=== PATIENT | female | born 1995 | race Caucasian/White ===

== ENCOUNTER 2023-08-14 11:17 | Inpatient (IN) | payer MEDICAID, SELFPAY ==
[2023-08-14] VITALS (8 sets, daily range): BP systolic 118–154; BP diastolic 71–93; PULSE 67–98; RESP 14–16; TEMP 36.1–36.6; O2SAT 98–100; BMI 33.8
--- NOTE | 2023-08-14 12:05 | EX.ED.DYSGE1 ---
HPI <SKYE Villafuerte - Last Filed: 08/14/23 13:26> History of Present Illness Chief Complaint: Substance Abuse Narrative Narrative: Patient is a 27-year-old female with history of bipolar, psychosis, PTSD, anxiety, depression who is currently on disability who presents to the emergency department for wanting detox. Patient states that she drinks alcohol whenever she can, she says she does drink significant amounts between 5-6 drinks a day. Patient also uses fentanyl and heroin, she snorts this 3-6 times a day. Patient also takes Xanax 2 mg 4 times a day this is prescribed for her. Patient states that she wants to get sober. Her last time trying detox was 1 month ago, she states was a 5-day stent however right when she got out she started using. Patient states he is try to get in the 180. She is here for evaluation. PFS <SKYE Villafuerte - Last Filed: 08/14/23 13:26> PFS Medical History Drug abuse ETOH abuse Home Medications alprazolam 2 mg tablet 2 mg PO Q6H PRN PRN anxiety 08/14/23 [History Last Taken 08/13/23] clonazepam 0.5 mg tablet 0.5 mg PO PRN PRN anxiety 08/14/23 [History Last Taken 08/13/23] clonidine HCl 0.1 mg tablet 0.1 mg PO DAILY PRN ANXIETY 08/14/23 [History Last Taken 08/13/23] ergocalciferol (vitamin D2) 1,250 mcg (50,000 unit) capsule 1,250 mcg PO MO 08/14/23 [History Last Taken 08/11/23] escitalopram oxalate 20 mg tablet 20 mg PO DAILY 08/14/23 [History Last Taken 08/12/23] gabapentin 800 mg tablet 800 mg PO 4X/DAY 08/14/23 [History Last Taken 08/12/23] hydroxyzine HCl 50 mg tablet 50 mg PO 4X/DAY 08/14/23 [History Last Taken 08/12/23] lamotrigine 25 mg tablet 25 mg PO BID 08/14/23 [History Last Taken 08/12/23] naproxen 500 mg tablet 500 mg PO BID PRN pain 08/14/23 [History Last Taken Unknown] olanzapine 10 mg tablet 15 mg PO DAILY 08/14/23 [History Last Taken 08/12/23] prazosin 2 mg capsule 2 mg PO QHS 08/14/23 [History Last Taken Unknown] quetiapine 400 mg tablet 400 mg PO QHS 08/14/23 [History Last Taken Unknown] Allergy/AdvReac Type Severity Reaction Status Date / Time fluoxetine [From Prozac] Allergy Other Verified 08/14/23 11:22 Family History (Updated 08/14/23 @ 13:[address] Miguel Medina DO) Other CAD (coronary artery disease) Social History Smoking Status: Current every day smoker tobacco type: cigarettes ROS <SKYE Villafuerte - Last Filed: 08/14/23 13:26> ROS ED ROS Narrative Constitutional: Negative for fever, chills, weight loss, weakness Eyes: Negative for vision loss, vision change, double vision ENT: Negative for any sore throat, ear pain, congestion Cardiovascular: Negative for any chest pain, tightness, palpitations Respiratory: Negative for any cough, sputum production, hemoptysis, dyspnea, dyspnea on exertion, orthopnea Gastrointestinal: Negative for any abdominal pain, nausea, vomiting, diarrhea, constipation, blood in stool, blood in vomit : Negative for any urinary frequency, dysuria, retention, blood in urine Muscle skeletal: Negative for any neck pain, back pain Neurological: Negative for any headache, syncope, dizziness Skin: Negative for any rashes, itching, abrasions, lacerations Psychiatric: Negative for any depression,suicidal ideation, homicidal ideation. Positive for anxiety, stress Hematologic: Negative for any excessive bruising, easy bleeding EXAM <SKYE Villafuerte - Last Filed: 08/14/23 13:26> Physical Exam Narrative Exam Narrative: Vital signs reviewed. HEET: Head normocephalic atraumatic, TMs clear bilaterally. Posterior pharynx is clear, moist mucous membranes. Nares clear bilaterally. Neck: Supple with no lymphadenopathy or tenderness. No signs of meningismus. Cardiac: Regular rate and rhythm no murmurs gallops or rubs, equal peripheral pulses bilaterally. Respiratory: Lungs clear to auscultation bilaterally. No chest tenderness. Abdomen: Soft, nontender, nondistended. No abdominal bruit or pulsatile masses. No hepatosplenomegaly Extremities: No peripheral edema, no signs of gross trauma or deformity. Active full range of motion of all extremities. Neuro: Cranial nerves II through XII intact, no focal neurological deficits. Skin: Clean dry and intact with no rash, purpura, petechiae, vesicles or pustules. Backs/flank: No CVA tenderness, no midline spinal tenderness, no deformity. Psych: Normal mood and affect. No SI, HI or acute psychosis. Const Vital Signs: 08/14/23 11:18 08/14/23 12:18 08/14/23 12:40 Temperature 97.2 F L Temperature Source Temporal Pulse Rate 98 80 67 Respiratory Rate 16 14 16 Blood Pressure 147/93 H 148/90 H 150/80 H Blood Pressure Mean 111 109 103 Pulse Ox 99 99 100 Oxygen Delivery Method Room Air Room Air Room Air 08/14/23 13:17 Temperature 97 F L Temperature Source Pulse Rate 91 Respiratory Rate 14 Blood Pressure 147/81 H Blood Pressure Mean 103 Pulse Ox 99 Oxygen Delivery Method <Dr. Abraham Billings DO - Last Filed: 08/14/23 17:33> Physical Exam Const Vital Signs: 08/14/23 11:18 08/14/23 12:18 08/14/23 12:40 Temperature 97.2 F L Temperature Source Temporal Pulse Rate 98 80 67 Respiratory Rate 16 14 16 Blood Pressure 147/93 H 148/90 H 150/80 H Blood Pressure Mean 111 109 103 Pulse Ox 99 99 100 Oxygen Delivery Method Room Air Room Air Room Air 08/14/23 13:17 Temperature 97 F L Temperature Source Pulse Rate 91 Respiratory Rate 14 Blood Pressure 147/81 H Blood Pressure Mean 103 Pulse Ox 99 Oxygen Delivery Method [facility] <SKYE Villafuerte - Last Filed: 08/14/23 13:26> [facility] Lab Data Labs: Laboratory Results - last 24 hr 08/14/23 12:40 WBC 9.3 RBC 4.69 Hgb 13.2 Hct 39.4 MCV 84.0 MCH 28.1 MCHC 33.5 RDW Std Deviation 37.2 RDW Coeff of Belkys 12.4 Plt Count 334 MPV 9.5 Immature Gran % (Auto) 0.300 Neut % (Auto) 81.6 H Lymph % (Auto) 11.3 L Hinds % (Auto) 6.5 Eos % (Auto) 0.0 Baso % (Auto) 0.3 Absolute Neuts (auto) 7.6 Absolute Lymphs (auto) 1.05 Nucleated RBC % 0 Sodium 140 Potassium 3.4 L Chloride 106 Carbon Dioxide 25.0 Anion Gap 9 BUN 12 Creatinine 0.75 Estim Creat Clear Calc 128.76 Est GFR (MDRD) Af Amer 120 Est GFR (MDRD) Non-Af 99 BUN/Creatinine Ratio 15.9 Glucose 159 H Calcium 9.3 Serum , Qual NEGATIVE Ethyl Alcohol 3.0 Treatment and Re-Evaluation :: Differential diagnosis includes however is not limited to: Detox, anxiety, bipolar, suicidal Patient appears to be in no obvious respiratory distress, patient resting in room comfortably. Presenting to the emergency department with concerns and wanting of detox. Labs to be drawn, patient will be admitted for detox. Patient CBC was unremarkable, patient's chemistries were unremarkable, patient is not . Alcohol is negative. At this time, patient will need to be admitted to the hospital for fentanyl/heroin detox. Patient also be detox for alcohol. Patient looks generally well at this time. Will speak to hospitalist. <Dr. Abraham Billings, DO - Last Filed: 08/14/23 17:33> MDM History & Record Review Discussion w/independent historian: Patient Lab Data Attestation: I reviewed the patient's lab results. Labs: Laboratory Results - last 24 hr 08/14/23 12:40 WBC 9.3 RBC 4.69 Hgb 13.2 Hct 39.4 MCV 84.0 MCH 28.1 MCHC 33.5 RDW Std Deviation 37.2 RDW Coeff of Belkys 12.4 Plt Count 334 MPV 9.5 Immature Gran % (Auto) 0.300 Neut % (Auto) 81.6 H Lymph % (Auto) 11.3 L Hinds % (Auto) 6.5 Eos % (Auto) 0.0 Baso % (Auto) 0.3 Absolute Neuts (auto) 7.6 Absolute Lymphs (auto) 1.05 Nucleated RBC % 0 Sodium 140 Potassium 3.4 L Chloride 106 Carbon Dioxide 25.0 Anion Gap 9 BUN 12 Creatinine 0.75 Estim Creat Clear Calc 128.76 Est GFR (MDRD) Af Amer 120 Est GFR (MDRD) Non-Af 99 BUN/Creatinine Ratio 15.9 Glucose 159 H Calcium 9.3 Serum , Qual NEGATIVE Ethyl Alcohol 3.0 Management Discussion w/another healthcare provider: Hospitalist (Dr. Medina) Treatment and Re-Evaluation :: Differential diagnosis includes however is not limited to: Detox, anxiety, bipolar, suicidal Patient appears to be in no obvious respiratory distress, patient resting in room comfortably. Presenting to the emergency department with concerns and wanting of detox. Labs to be drawn, patient will be admitted for detox. Patient CBC was unremarkable, patient's chemistries were unremarkable, patient is not . Alcohol is negative. At this time, patient will need to be admitted to the hospital for fentanyl/heroin detox. Patient also be detox for alcohol. Patient looks generally well at this time. Will speak to hospitalist. I have personally performed a face to face assessment of the patient and have reviewed the LYNETTE Note. I performed a substantive portion of the visit including all aspects of the following. My zayas findings include: History is 27-year-old female presenting to the emergency department seeking detox from opiates. Patient has a polysubstance use disorder involving opiates in the form of fentanyl as well as alcohol. She states that she gave a urine drug screen to her p.o. on Friday that was dirty. She is on probation for possession of. Exam is afebrile vital signs are stable. Patient awake alert talking no acute distress. Medical Decison Making ED addiction labs will be ordered and the plan will be to admit the patient to the hospital. Discharge Plan Dx/Rx/DC Orders Clinical Impression: Desire for detoxification, Polysubstance abuse Disposition Disposition: Acute Care Hospital [facility] Discharge Date/Time: 08/14/23 16:15
[2023-08-14 12:51] LABS: Absolute Lymphocyte Count 1.05 X10^3/uL (0.83-4.51); Absolute Neutrophil Count 7.6 X10^3/uL (2.0-7.7); Basophil# 0.03 X10^3/uL; Basophil% 0.3 % (0-1); Hematocrit 39.4 % (37-47); Hemoglobin 13.2 g/dL (12.0-15.0); Lymphocyte # 1.05 X10^3/ul (0.83-4.51); Lymphocyte % 11.3 % (19-41); Mean Corp Hgb Conc 33.5 g/dL (32-36); Mean Corpuscular Hgb 28.1 pg (27.0-32.0); Mean Platelet Vol. 9.5 fl (6.2-12.0); Monocyte# 0.61 X10^3/uL; Monocyte% 6.5 % (0-10); NRBC Flagged by Analyzer 0 % (0-5); Neutrophil # 7.61 X10^3/uL (2.7-7.7); Neutrophil % 81.6 % (47-70); Platelet Count 334 K/mm3 (150-450); RBC Distribution Width CV 12.4 % (11.6-14.6); RBC Distribution Width SD 37.2 fl (35.1-43.9); Red Blood Count 4.69 M/mm3 (4.2-5.4); White Blood Count 9.3 K/mm3 (4.4-11.0)
[2023-08-14 13:03] LABS: Internal QC Validated? YES +Cl - CLEAR BKGD; Pregnancy, Serum, hCG Quali. NEGATIVE Negative
[2023-08-14 13:05] LABS: Anion Gap 9 (5-15); BUN 12 mg/dL (7-18); BUN/Creat Ratio 15.9 RATIO (10-20); Calcium,Total 9.3 mg/dL (8.5-10.1); Chloride 106 mmol/L (98-107); Creatinine, Serum 0.75 mg/dL (0.55-1.02); EST Glomerular Filtration Rate 99 mL/min (>60); Est Glom Filt Rate - Afr Amer 120 mL/min (>60); Estimated Creatinine Clearance 128.76 ml/min; Glucose 159 mg/dL (74-106); Potassium 3.4 mmol/L (3.5-5.1); Sodium Level 140 mmol/L (136-145)
--- NOTE | 2023-08-14 13:29 | NURSING ---
MED SURG DARCIERI FENTANYL,HEROIN DETOX, ALCOHOL DETOX
--- NOTE | 2023-08-14 13:34 | PCM.HP.STD ---
HPI - General General Date of Service: 08/14/23 Chief Complaint: Opiate and alcohol withdrawal HPI Narrative EDE HERRON, is a 27 F who presents seeking treatment for opiate and alcohol withdrawal. Patient has been in [facility] for the past 2 days and has been having restless legs and feeling unwell. She spoke with her weapons officer naval activity who gave her the option of going into withdrawal treatment or staying in correction. Patient chose the former. Patient's mom says she snorts fentanyl or heroin and drinks alcohol is much as I get my hands on. Upon further clarification she says she drinks about 1/5 of alcohol. Says that she uses cocaine as well. PFSH Medical History Drug abuse ETOH abuse Home Medications alprazolam 2 mg tablet 2 mg PO Q6H PRN PRN anxiety 08/14/23 [History Last Taken 08/13/23] clonazepam 0.5 mg tablet 0.5 mg PO PRN PRN anxiety 08/14/23 [History Last Taken 08/13/23] clonidine HCl 0.1 mg tablet 0.1 mg PO DAILY PRN ANXIETY 08/14/23 [History Last Taken 08/13/23] ergocalciferol (vitamin D2) 1,250 mcg (50,000 unit) capsule 1,250 mcg PO MO 08/14/23 [History Last Taken 08/11/23] escitalopram oxalate 20 mg tablet 20 mg PO DAILY 08/14/23 [History Last Taken 08/12/23] gabapentin 800 mg tablet 800 mg PO 4X/DAY 08/14/23 [History Last Taken 08/12/23] hydroxyzine HCl 50 mg tablet 50 mg PO 4X/DAY 08/14/23 [History Last Taken 08/12/23] lamotrigine 25 mg tablet 25 mg PO BID 08/14/23 [History Last Taken 08/12/23] naproxen 500 mg tablet 500 mg PO BID PRN pain 08/14/23 [History Last Taken Unknown] olanzapine 10 mg tablet 15 mg PO DAILY 08/14/23 [History Last Taken 08/12/23] prazosin 2 mg capsule 2 mg PO QHS 08/14/23 [History Last Taken Unknown] quetiapine 400 mg tablet 400 mg PO QHS 08/14/23 [History Last Taken Unknown] Allergy/AdvReac Type Severity Reaction Status Date / Time fluoxetine [From [facility]] Allergy Other Verified 08/14/23 11:22 Family History (Updated 08/14/23 @ 13:[address] Miguel Medina DO) Other CAD (coronary artery disease) Social History Smoking Status: Current every day smoker tobacco type: cigarettes ROS ROS Narrative All review of systems were negative except as mentioned above in the history of present illness and the other review of systems. Vital Signs Vital Signs Vital Signs: 08/14/23 11:18 08/14/23 12:18 08/14/23 12:40 Temperature 36.2 C L Temperature Source Temporal Pulse Rate 98 80 67 Respiratory Rate 16 14 16 Blood Pressure 147/93 H 148/90 H 150/80 H Blood Pressure Mean 111 109 103 Pulse Ox 99 99 100 Oxygen Delivery Method Room Air Room Air Room Air 08/14/23 13:17 Temperature 36.1 C L Temperature Source Pulse Rate 91 Respiratory Rate 14 Blood Pressure 147/81 H Blood Pressure Mean 103 Pulse Ox 99 Oxygen Delivery Method Weight Weight: 92.334 kg Body Mass Index (BMI) 33.8 Physical Exam Const alert and no apparent distress HEENT normocephalic and head/scalp atraumatic Resp normal respiratory effort, no retractions, no use of accessory muscles and clear to auscultation bilaterally Cardio regular rate, regular rhythm, S1 normal heart sound and S2 normal heart sound GI normal to inspection, nondistended, normoactive bowel sounds, soft to palpation, non-tender and non-distended Extremity normal to inspection Neuro Sensorium / Orientation: awake and alert Results Lab / Micro Data 08/14/23 12:40 08/14/23 12:40 Labs: Laboratory Results - last 24 hr 08/14/23 12:40: WBC 9.3, RBC 4.69, Hgb 13.2, Hct 39.4, MCV 84.0, MCH 28.1, MCHC 33.5, RDW Std Deviation 37.2, RDW Coeff of Belkys 12.4, Plt Count 334, MPV 9.5, Immature Gran % (Auto) 0.300, Neut % (Auto) 81.6 H, Lymph % (Auto) 11.3 L, Norman % (Auto) 6.5, Eos % (Auto) 0.0, Baso % (Auto) 0.3, Absolute Neuts (auto) 7.6, Absolute Lymphs (auto) 1.05, Nucleated RBC % 0, Sodium 140, Potassium 3.4 L, Chloride 106, Carbon Dioxide 25.0, Anion Gap 9, BUN 12, Creatinine 0.75, Estim Creat Clear Calc 128.76, Est GFR (MDRD) Af Amer 120, Est GFR (MDRD) Non-Af 99, BUN/Creatinine Ratio 15.9, Glucose 159 H, Calcium 9.3, Serum , Qual NEGATIVE, Ethyl Alcohol 3.0 Assessment & Plan Assessment/Plan (1) Polysubstance abuse: PLAN: Plan Opiate withdrawal I feel the patient is not a reliable historian and questioning whether or not she does use opiates. She states that she uses fentanyl and heroin intermittently. This seems rather suspect. Will have her on buprenorphine taper. Alcohol withdrawal Patient's history of alcohol consumption is as much alcohol she can get her hands on and then further clarifies that is drinking 1/5 of liquor a day. This again also seems rather suspect. Given the context with the patient in [facility], she may have been saying what ever she could to get out of [facility]. Given that she is on Seroquel there is interaction with phenobarbital. Patient on her MAR so that she does take alprazolam. She will have that available as needed. Overall, patient does not appear to be that ill from not having drank alcohol in 48 hours. Underlying psychiatric history I cannot verify this on OARRS as I did not have her phone number for me to validate this but patient has alprazolam, clonazepam, clonidine, Lexapro, gabapentin, hydroxyzine, lamotrigine, olanzapine and Seroquel. Will hold the gabapentin and will initiate tapering down on the benzodiazepines. VTE prophylaxis: Low risk. Not indicated. Charges/Coding Visit Charges Inpatient E&M: 55157 Init Hosp L2
[2023-08-14] MEDS: Methocarbamol 750 MG Tablet PO (17:13)
[2023-08-14] MEDS: cloNIDine HCl 0.1 MG Tablet PO (17:13)
[2023-08-14] MEDS: Ondansetron 8 MG Tablet PO (17:13)
[2023-08-14] MEDS: Buprenorphine HCl 2 MG TAB.SUBL SL (17:18)
[2023-08-14] MEDS: Prazosin HCl 1 MG Capsule 2 MG PO (22:30)
[2023-08-14] MEDS: lamoTRIgine 25 MG Tablet PO (22:30)
[2023-08-14] MEDS: QUEtiapine 100 MG Tablet 400 MG PO (22:31)
[2023-08-14] MEDS: Acetaminophen 500 MG Tablet PO (22:31)
[2023-08-14] MEDS: Dicyclomine 10 MG Capsule 20 MG PO (22:31)
[2023-08-15 01:13] VITALS: BP 105/65; PULSE 93; RESP 16; TEMP 36.6; O2SAT 99
[2023-08-15] MEDS: Buprenorphine HCl 2 MG TAB.SUBL SL ×3 (01:17→17:32)
[2023-08-15 06:00] VITALS: BP 111/70; PULSE 82; RESP 16; TEMP 36.6; O2SAT 99
[2023-08-15] MEDS: cloNIDine HCl 0.1 MG Tablet PO ×2 (06:20→17:45)
[2023-08-15] MEDS: Ondansetron 8 MG Tablet PO ×2 (06:20→17:44)
[2023-08-15] MEDS: Escitalopram Oxalate 20 MG Tablet PO (09:11)
[2023-08-15] MEDS: Folic Acid 1 MG Tablet PO (09:11)
[2023-08-15] MEDS: lamoTRIgine 25 MG Tablet PO ×2 (09:12→21:35)
[2023-08-15] MEDS: OLANZapine 5 MG/TAB TAB.RAPDIS 15 MG PO (09:12)
[2023-08-15] MEDS: Thiamine Hydrochloride 100 MG Tablet PO (09:13)
[2023-08-15] MEDS: Methocarbamol 750 MG Tablet PO ×2 (09:23→16:11)
[2023-08-15 10:15] VITALS: BP 104/61; PULSE 98; RESP 16; TEMP 37.1; O2SAT 97
--- NOTE | 2023-08-15 14:20 | ADDICTION ---
Met with pt to complete assessment. She was very lethargic and falling asleep during assessment. She reports that she has been snorting about a gram of fentanyl a day. Pt is prescribed 800mg 4x daily of gabapentin and 2mg 4x daily of clonazopam. There are concerns about that high level of use. An OARRS report was obtained and dosages confirmed. Unsure of the justification for the dosage. Pt signed a release for her control officer. She reports that she does not know if he wants her to go to inpatient treatment. If not, she is only interested in detox. Resources were provided.
--- NOTE | 2023-08-15 15:15 | ADDICTION ---
Pt has agreed to residential treatment. A MELECIO was signed for her professional security officer. He informed her that she will receive a F3 escapse charge if she does not complete treatment fully. She agreed to detox off of the Clonazepam and gabapentin as well. Pt will be transported to the [facility] in [facility]. They will provide transportation.
[2023-08-15 15:38] VITALS: BP 90/55; PULSE 74; RESP 16; TEMP 36.4; O2SAT 98
--- NOTE | 2023-08-15 15:39 | PCM.PN.HOSP ---
Reason for Visit Reason for Visit: Diagnoses Other psychoactive substance abuse, uncomplicated (08/14/23) Objective Data Objective Data Vital Signs: Vital Signs Temp Pulse Resp BP Pulse Ox O2 Del Method 98.7 F 98 16 104/61 97 Room Air 08/15/23 10:15 08/15/23 10:15 08/15/23 10:15 08/15/23 10:15 08/15/23 10:15 08/15/23 10:15 Oxygen Delivery Method Room Air Weight: 203 lb 9 oz Body Mass Index (BMI) 33.8 Intake & Output: Intake and Output for Last 24 Hours 08/13/23 08/14/23 08/15/23 23:59 23:59 23:59 Intake Total 350 / 590 840 / 840 Balance 350 / 590 840 / 840 Lab / Micro Data 08/14/23 12:40 08/14/23 12:40 Physical Exam Narrative Patient on multiple substance use/chemicals. She takes 2 mg Xanax 4 times a day, drinks 1/5 of vodka every day since age of 20. 2 to 3 g of fentanyl/heroin snorting. She states he is feeling terrible with restlessness anxiety, hallucinations. Feels palpitation. Could not sleep last night. She was also seeing her mom and sister who was not there last night. Visual hallucinations Physical exam General: Hyperalert, awake oriented x3, Cooperative HEENT: Atraumatic, PERRLA, EOMI, Normocephalic Oral: No Gingival or Mucosal Lesions/ Ulcerations Neck: Supple, No JVD, Negative Carotid Bruits Chest wall/Lungs: Air entry diminished in bilateral lung bases. No crepitation/rhonchi Cardiovascular: Regular rate, Regular Rhythm, Normal S1, Normal S2, No M/G/R Abdomen: Bowel Sounds Present, Soft, Non Tender, Non-Distended : No dysuria. No renal angle tenderness. No suprapubic tenderness. Extremities: No edema, Capillary Refill Less than 3 Seconds Skin: No rashes, No breakdown Musculoskeletal: No Tenderness to Palpation of Joints or Extremities Neurological: Cranial nerves II-XII grossly intact, DTR 2+/4. No acute focal neurological deficit. Psych/Mental Status: Restless, anxiety, hallucinations Assessment & Plan Assessment/Plan (1) Polysubstance abuse: PLAN: Plan This 27-year-old female who came to ED to seek help. She takes 2 mg Xanax 4 times a day, drinks 1/5 of vodka every day since age of 20. 2 to 3 g of fentanyl/heroin snorting. She states he is feeling terrible with restlessness anxiety, hallucinations. Feels palpitation. Could not sleep last night. She was also seeing her mom and sister who was not there last night. Visual hallucinations 1. Acute opioid withdrawal syndrome with history of chronic opioid use and dependence and tolerance: She denies IV needle use but he snorts fentanyl and heroin. The patient is started on buprenorphine along with other adjunctive medications as needed for medical stabilization as per order set of opioid withdrawal syndrome.Patient also on trazodone, hydroxyzine, gabapentin as needed ordered. Advised quitting opioid use. manager retention consult. 2. Acute alcohol withdrawal syndrome with history of chronic alcohol use dependence and tolerance: Patient is being admitted to MedSurg floor. Patient on phenobarbital based order set along with other adjunctive medications gabapentin, Bentyl, Vistaril, clonidine, Klonopin as needed for alcohol withdrawal symptom control. Patient is on thiamine and folate acid. Denies history of GI bleed, hepatitis, jaundice or ascites. CIWA monitor. manager retention consulted.. 3. Acute benzodiazepine withdrawal syndrome with history of chronic benzodiazepine dependence and tolerance: On heavy dose of Xanax as mentioned above. Home meds also shows clonazepam unclear whether she is taking or not. She is on severe benzodiazepine withdrawal and is states that she gets seizure and had 5 times in her life. She is on Lamictal. Discussed with employment specialist/program manager Dr. Briana Cardenas and agree with phenobarbital loading dose and then taper. Phenobarb also acts as antiepileptic medication along with gabapentin as needed for 4. Underlying psychiatric history VTE prophylaxis: Low risk. Not indicated. Total time of the visit including total time spent in counseling or coordination of care, (more than 50% of the total time, spent in obtaining medical information from nurses and other ancillary care providers,explaining to the patient about labs, imaging, diagnosis and management of active complex medical conditions), discussion with employment specialist/program manager, 118 advertising campaign manager and nursing, review of labs and imaging is 40 minutes. Charges/Coding Visit Charges Inpatient E&M: 25165 Subs Hosp L3
--- NOTE | 2023-08-15 15:48 | CHAPLAIN ---
Type of Pastoral Visit _x__ Initial Visit ___ Follow-up Visit ___ On-call Visit ___ General Patient Visit ___ Spiritual Assessment ___ Family Conference ___ Bereavement ___ Rapid Response ___ Code Blue ___ Other (describe below) Pastoral Care Referral From _x__ Patient ___ Family ___ Nurse ___ Physician ___ Technology Methodology Consultant ___ Survey Supervisor ___ Other (describe below) Sacrament/Intervention _x__ Active listening ___ Anointing ___ Church ___ Bereavement ___ Communion _x__ Maggy exploration ___ ___ Life review _x__ Prayer ___ Reconciliation ___ Sacrament of Sick _x__ Supportive presence ___ Wedding ___ Other (describe below) Pastoral Comments patient was resting but was easily awakened to her name; pt is welcoming and states that she is not feeling well but would accept the company; engaged in conversation about her life and her feelings; pt has a mother who is in treatment center currently and would be supportive of the patient; pt used to go to islam with her grandmother and does welcome spiritual care and prayer; pt is affirmed in her desire to stop the destructive addictions and to persevere in rehab or counseling; pt several times expresses her thanks for being with her and encouraging her; prayer welcomed
[2023-08-15] MEDS: Phenobarbital 32.4 MG Tablet 64.8 MG PO ×2 (16:10→20:03)
[2023-08-15] MEDS: Gabapentin 300 MG Capsule PO (16:11)
[2023-08-15 17:30] VITALS: BP 108/67; PULSE 91; RESP 16; TEMP 36.4; O2SAT 97
[2023-08-15] MEDS: Acetaminophen 500 MG Tablet PO (17:44)
[2023-08-15] MEDS: Dicyclomine 10 MG Capsule 20 MG PO (17:44)
[2023-08-15 19:53] VITALS: BP 108/61; PULSE 90; RESP 16; TEMP 36.9; O2SAT 99
[2023-08-15] MEDS: MELATONIN 3 MG TABLET PO (21:35)
[2023-08-15] MEDS: Prazosin HCl 1 MG Capsule 2 MG PO (21:35)
[2023-08-16] MEDS: Phenobarbital 32.4 MG Tablet 64.8 MG PO ×7 (00:20→23:49)
[2023-08-16] MEDS: Gabapentin 300 MG Capsule PO ×2 (00:22→19:49)
[2023-08-16 02:06] VITALS: BP 101/59; PULSE 82; RESP 16; TEMP 36.3; O2SAT 96
[2023-08-16] MEDS: Dicyclomine 10 MG Capsule 20 MG PO ×2 (02:13→19:49)
[2023-08-16] MEDS: Acetaminophen 500 MG Tablet PO (02:13)
[2023-08-16] MEDS: cloNIDine HCl 0.1 MG Tablet PO (02:13)
[2023-08-16] MEDS: Methocarbamol 750 MG Tablet PO (02:13)
[2023-08-16] MEDS: Ondansetron 8 MG Tablet PO (02:13)
[2023-08-16] MEDS: Buprenorphine HCl 2 MG TAB.SUBL SL ×3 (02:13→17:50)
[2023-08-16] MEDS: Thiamine Hydrochloride 100 MG Tablet PO (08:28)
[2023-08-16] MEDS: Folic Acid 1 MG Tablet PO (08:28)
[2023-08-16 08:57] VITALS: BP 102/56; PULSE 76; RESP 18; TEMP 36.6; O2SAT 100
[2023-08-16] MEDS: lamoTRIgine 25 MG Tablet PO ×2 (09:41→21:42)
[2023-08-16] MEDS: Escitalopram Oxalate 20 MG Tablet PO (09:42)
[2023-08-16] MEDS: OLANZapine 5 MG/TAB TAB.RAPDIS 15 MG PO (09:42)
--- NOTE | 2023-08-16 11:06 | PCM.PN.HOSP ---
Reason for Visit Reason for Visit: Diagnoses Other psychoactive substance abuse, uncomplicated (08/14/23) Objective Data Objective Data Vital Signs: Vital Signs Temp Pulse Resp BP Pulse Ox O2 Del Method 97.9 F 76 18 102/56 L 100 Room Air 08/16/23 08:57 08/16/23 08:57 08/16/23 08:57 08/16/23 08:57 08/16/23 08:57 08/16/23 08:57 Oxygen Delivery Method Room Air Weight: 203 lb 9 oz Body Mass Index (BMI) 33.8 Intake & Output: Intake and Output for Last 24 Hours 08/14/23 08/15/23 08/16/23 23:59 23:59 23:59 Intake Total 350 / 590 840 / 840 500 / 500 Balance 350 / 590 840 / 840 500 / 500 Lab / Micro Data 08/14/23 12:40 08/14/23 12:40 Physical Exam Narrative Seen and examined. Patient did not feel improvement in withdrawal symptoms. She still does feel very anxiety restless, sometimes sleepy and hallucination. Patient on multiple substance use/chemicals. She takes 2 mg Xanax 4 times a day, drinks 1/5 of vodka every day since age of 20. 2 to 3 g of fentanyl/heroin snorting. She states he is feeling terrible with restlessness anxiety, hallucinations. Feels palpitation. Could not sleep last night. She was also seeing her mom and sister who was not there last night. Visual hallucinations Physical exam General: Lethargic, groggy/sleepy. oriented x3, Cooperative HEENT: Atraumatic, PERRLA, EOMI, Normocephalic Oral: No Gingival or Mucosal Lesions/ Ulcerations Neck: Supple, No JVD, Negative Carotid Bruits Chest wall/Lungs: Air entry diminished in bilateral lung bases. No crepitation/rhonchi Cardiovascular: Regular rate, Regular Rhythm, Normal S1, Normal S2, No M/G/R Abdomen: Bowel Sounds Present, Soft, Non Tender, Non-Distended : No dysuria. No renal angle tenderness. No suprapubic tenderness. Extremities: No edema, Capillary Refill Less than 3 Seconds Skin: No rashes, No breakdown Musculoskeletal: No Tenderness to Palpation of Joints or Extremities Neurological: Cranial nerves II-XII grossly intact, DTR 2+/4. No acute focal neurological deficit. Psych/Mental Status: Restless, anxiety, hallucinations Assessment & Plan Assessment/Plan (1) Polysubstance abuse: PLAN: Plan This 27-year-old female who came to ED to seek help. She takes 2 mg Xanax 4 times a day, drinks 1/5 of vodka every day since age of 20. 2 to 3 g of fentanyl/heroin snorting. She states he is feeling terrible with restlessness anxiety, hallucinations. Feels palpitation. Could not sleep last night. She was also seeing her mom and sister who was not there last night. Visual hallucinations 1. Acute opioid withdrawal syndrome with history of chronic opioid use and dependence and tolerance: She denies IV needle use but he snorts fentanyl and heroin. The patient is started on buprenorphine along with other adjunctive medications as needed for medical stabilization as per order set of opioid withdrawal syndrome.Patient also on trazodone, hydroxyzine, gabapentin as needed ordered. Advised quitting opioid use. traffic i manager consult. 08/15: Patient has withdrawal symptoms. On maximal medications. 2. Acute alcohol withdrawal syndrome with history of chronic alcohol use dependence and tolerance: Patient is being admitted to MedSurg floor. Patient on phenobarbital based order set along with other adjunctive medications gabapentin, Bentyl, Vistaril, clonidine, Klonopin as needed for alcohol withdrawal symptom control. Patient is on thiamine and folate acid. Denies history of GI bleed, hepatitis, jaundice or ascites. CIWA monitor. traffic i manager consulted.. 08/15: Total CIWA score 7. 3. Acute benzodiazepine withdrawal syndrome with history of chronic benzodiazepine dependence and tolerance: On heavy dose of Xanax as mentioned above. Home meds also shows clonazepam unclear whether she is taking or not. She is on severe benzodiazepine withdrawal and is states that she gets seizure and had 5 times in her life. She is on Lamictal. Discussed with senior engineering specialist Dr. Briana Cardenas and agree with phenobarbital loading dose and then taper. Phenobarb also acts as antiepileptic medication along with gabapentin as needed for for seizure/neuropathy. 08/15 dose of Xanax decreased to 0.5 milligram 3 times daily as needed for anxiety/panic attack or insomnia. Total CIWA V score for benzodiazepine withdrawal 6. 4. Underlying psychiatric history of anxiety and substance use disorder VTE prophylaxis: Low risk. Not indicated. Charges/Coding Visit Charges Inpatient E&M: 15341 Subs Hosp L2
[2023-08-16 16:00] VITALS: BP 110/60; PULSE 77; RESP 18; TEMP 36.7; O2SAT 100
[2023-08-16 20:03] VITALS: BP 111/70; PULSE 83; RESP 16; TEMP 36.7; O2SAT 98
[2023-08-16] MEDS: Prazosin HCl 1 MG Capsule 2 MG PO (21:42)
[2023-08-16] MEDS: MELATONIN 3 MG TABLET PO (21:42)
[2023-08-16 22:04] LABS: Amphetamine Urine VISTA NEGATIVE (<1000 ng/mL); Barbiturate Urine VISTA POSITIVE (< 200 ng/mL); Benzodiazepine Urine VISTA POSITIVE (< 200 ng/mL); Cocaine Urine VISTA POSITIVE (< 300 ng/mL); Ecstacy Urine VISTA NEGATIVE (< 500 ng/mL); Methadone Urine VISTA NEGATIVE (< 300 ng/mL); PCP Urine VISTA NEGATIVE (< 25 ng/mL); THC Urine VISTA NEGATIVE (< 50 ng/mL); Vista UDS pH Range 6
[2023-08-17] MEDS: Phenobarbital 32.4 MG Tablet 64.8 MG PO ×5 (04:01→19:45)
[2023-08-17 04:02] VITALS: BP 105/57; PULSE 75; RESP 16; TEMP 36.7; O2SAT 97
[2023-08-17] MEDS: Buprenorphine HCl 2 MG TAB.SUBL SL (05:11)
[2023-08-17 07:49] VITALS: BP 107/57; PULSE 104; RESP 16; TEMP 36.8; O2SAT 93
[2023-08-17] MEDS: lamoTRIgine 25 MG Tablet PO ×2 (07:50→22:20)
[2023-08-17] MEDS: Escitalopram Oxalate 20 MG Tablet PO (07:50)
[2023-08-17] MEDS: Thiamine Hydrochloride 100 MG Tablet PO (07:50)
[2023-08-17] MEDS: Folic Acid 1 MG Tablet PO (07:51)
[2023-08-17] MEDS: OLANZapine 5 MG/TAB TAB.RAPDIS 15 MG PO (07:51)
[2023-08-17] MEDS: Methocarbamol 750 MG Tablet PO ×2 (07:59→16:32)
[2023-08-17] MEDS: Gabapentin 300 MG Capsule PO ×2 (07:59→16:32)
[2023-08-17] MEDS: Ondansetron 8 MG Tablet PO (07:59)
[2023-08-17] MEDS: Dicyclomine 10 MG Capsule 20 MG PO ×2 (08:00→16:32)
--- NOTE | 2023-08-17 11:27 | PCM.PN.HOSP ---
Reason for Visit Reason for Visit: Diagnoses Other psychoactive substance abuse, uncomplicated (08/14/23) Objective Data Objective Data Vital Signs: Vital Signs Temp Pulse Resp BP Pulse Ox O2 Del Method 98.2 F 104 H 16 107/57 L 93 Room Air 08/17/23 07:49 08/17/23 07:49 08/17/23 07:49 08/17/23 07:49 08/17/23 07:49 08/17/23 07:49 Oxygen Delivery Method Room Air Weight: 203 lb 9 oz Body Mass Index (BMI) 33.8 Intake & Output: Intake and Output for Last 24 Hours 08/15/23 08/16/23 08/17/23 23:59 23:59 23:59 Intake Total 840 / 840 2500 / 2500 900 / 900 Balance 840 / 840 2500 / 2500 900 / 900 Lab / Micro Data 08/14/23 12:40 08/14/23 12:40 Labs: Laboratory Results - last 24 hr 08/16/23 21:25: Urine Opiates Screen NEGATIVE, Urine Methadone Screen NEGATIVE, Ur Barbiturates Screen POSITIVE H, Ur Phencyclidine Scrn NEGATIVE, Ur Amphetamines Screen NEGATIVE, MDMA (Ecstasy) Screen NEGATIVE, U Benzodiazepines Scrn POSITIVE H, Urine Cocaine Screen POSITIVE H, U Cannabinoids Screen NEGATIVE, Ur Drug Screen Comment Physical Exam Narrative Seen and examined. Not significant improvement in withdrawal symptoms since admission. She still does feel very anxiety restless, sometimes sleepy and hallucination. Patient on multiple substance use/chemicals. She takes 2 mg Xanax 4 times a day, drinks 1/5 of vodka every day since age of 20. 2 to 3 g of fentanyl/heroin snorting. She states he is feeling terrible with restlessness anxiety, hallucinations. Feels palpitation. Could not sleep last night. She was also seeing her mom and sister who was not there last night. Visual hallucinations Physical exam General: Lethargic, groggy oriented x3, Cooperative HEENT: Atraumatic, PERRLA, EOMI, Normocephalic Oral: No Gingival or Mucosal Lesions/ Ulcerations Neck: Supple, No JVD, Negative Carotid Bruits Chest wall/Lungs: Air entry diminished in bilateral lung bases. No crepitation/rhonchi Cardiovascular: Regular rate, Regular Rhythm, Normal S1, Normal S2, No M/G/R Abdomen: Bowel Sounds Present, Soft, Non Tender, Non-Distended : No dysuria. No renal angle tenderness. No suprapubic tenderness. Extremities: No edema, Capillary Refill Less than 3 Seconds Skin: No rashes, No breakdown Musculoskeletal: No Tenderness to Palpation of Joints or Extremities Neurological: Cranial nerves II-XII grossly intact, DTR 2+/4. No acute focal neurological deficit. Psych/Mental Status: Restless, anxiety, hallucinations Assessment & Plan Assessment/Plan (1) Polysubstance abuse: PLAN: Plan This 27-year-old female who came to ED to seek help. She takes 2 mg Xanax 4 times a day, drinks 1/5 of vodka every day since age of 20. 2 to 3 g of fentanyl/heroin snorting. She states he is feeling terrible with restlessness anxiety, hallucinations. Feels palpitation. Could not sleep last night. She was also seeing her mom and sister who was not there last night. Visual hallucinations 1. Acute opioid withdrawal syndrome with history of chronic opioid use and dependence and tolerance: She denies IV needle use but he snorts fentanyl and heroin. The patient is started on buprenorphine along with other adjunctive medications as needed for medical stabilization as per order set of opioid withdrawal syndrome.Patient also on trazodone, hydroxyzine, gabapentin as needed ordered. Advised quitting opioid use. shopper marketing manager consult. 08/15: Patient has withdrawal symptoms. On maximal medications. 08/16: Continue above regimen 2. Acute alcohol withdrawal syndrome with history of chronic alcohol use dependence and tolerance: Patient is being admitted to MedSurg floor. Patient on phenobarbital based order set along with other adjunctive medications gabapentin, Bentyl, Vistaril, clonidine, Klonopin as needed for alcohol withdrawal symptom control. Patient is on thiamine and folate acid. Denies history of GI bleed, hepatitis, jaundice or ascites. CIWA monitor. shopper marketing manager consulted.. 08/15: Total CIWA score 7. 08/16:Clinically patient is still in significant withdrawal symptoms. 3. Acute benzodiazepine withdrawal syndrome with history of chronic benzodiazepine dependence and tolerance: On heavy dose of Xanax as mentioned above. Home meds also shows clonazepam unclear whether she is taking or not. She is on severe benzodiazepine withdrawal and is states that she gets seizure and had 5 times in her life. She is on Lamictal. Discussed with operations systems specialist Dr. Briana Cardenas and agree with phenobarbital loading dose and then taper. Phenobarb also acts as antiepileptic medication along with gabapentin as needed for for seizure/neuropathy. 08/15 dose of Xanax decreased to 0.5 milligram 3 times daily as needed for anxiety/panic attack or insomnia. Total CIWA V score for benzodiazepine withdrawal 6. 08/16: Continue home regimen. 4. Underlying psychiatric history of anxiety and substance use disorder VTE prophylaxis: Low risk. Not indicated. Charges/Coding Visit Charges Inpatient E&M: 23223 Subs Hosp L2
[2023-08-17 14:38] VITALS: BP 103/62; PULSE 77; RESP 16; TEMP 36.8; O2SAT 97
[2023-08-17] MEDS: cloNIDine HCl 0.1 MG Tablet PO (16:32)
[2023-08-17 20:30] VITALS: BP 107/56; PULSE 66; RESP 16; TEMP 36.8; O2SAT 97
[2023-08-17] MEDS: MELATONIN 3 MG TABLET PO (22:20)
[2023-08-17] MEDS: Prazosin HCl 1 MG Capsule 2 MG PO (22:20)
[2023-08-18] MEDS: Phenobarbital 32.4 MG Tablet 64.8 MG PO ×3 (00:39→12:01)
[2023-08-18] MEDS: Gabapentin 300 MG Capsule PO ×2 (00:39→10:14)
[2023-08-18 05:23] VITALS: BP 118/85; PULSE 76; RESP 15; TEMP 36.8; O2SAT 97
--- NOTE | 2023-08-18 09:11 | DCINST_ITS ---
Discharge Instructions Diet Discharge Diet: No restrictions Activity Discharge Activity: Return to Normal Activity Weight Bearing Status: Weight bearing as tolerated Dressing / Incision Call your doctor if you observe: Fever of 101 or Higher, Coldness, Increased Pain, Numbness or Tingling, Change in Color, Inability to urinate, Inability to have a bowel movement, Using more than 1 pad per hour, Shortness of breath, Dizziness, Fainting spells, Swelling in the ankles, Chest pain, Prolonged hiccupping, Increased palpitations (irregular heartbeat) and Calf discomfort Follow Up Care When: IN 2 WEEKS Test Results: Test results from this visit will be discussed in further detail at your follow- up appointment, if applicable. Discharge Plan Admission Admit Date/Time: 08/14/23 13:27 Primary Reason for Your Visit: Acute opioid, benzodiazepine and alcohol withdrawal syndrome Attending Provider: Jorge Rodriguez Primary Care Provider: Sharonda Physician,No Primary Consulting Providers: Miguel Medina Discharge Orders/Prescriptions Prescriptions: New thiamine HCl (vitamin B1) [Vitamin B-1] 100 mg Tablet 100 mg PO DAILYCM Qty: 0 0RF folic acid 1 mg Tablet 1 mg PO DAILY@0800 Qty: 0 0RF Continued alprazolam 2 mg tablet 2 mg PO Q6H PRN PRN (Reason: anxiety) clonidine HCl 0.1 mg tablet 0.1 mg PO DAILY PRN (Reason: ANXIETY) ergocalciferol (vitamin D2) 1,250 mcg (50,000 unit) capsule 1,250 mcg PO MO gabapentin 800 mg tablet 800 mg PO 4X/DAY escitalopram oxalate 20 mg tablet 20 mg PO DAILY hydroxyzine HCl 50 mg tablet 50 mg PO 4X/DAY lamotrigine 25 mg tablet 25 mg PO BID naproxen 500 mg tablet 500 mg PO BID PRN (Reason: pain) olanzapine 10 mg tablet 15 mg PO DAILY prazosin 2 mg capsule 2 mg PO QHS quetiapine 400 mg tablet 400 mg PO QHS Discontinued clonazepam 0.5 mg tablet 0.5 mg PO PRN PRN (Reason: anxiety) Referrals / Follow Up: Care Physician,No Primary [Primary Care Provider] - Briana Cardenas DO [Med Staff - Consulting] - Within 2 Weeks Disposition Disposition (needs filled in before D/C Order can be placed): Inpatient Rehab Unit/Facility
--- NOTE | 2023-08-18 09:16 | DS.PCM_ITS ---
Providers Date of Admission: 08/14/23 Date of Discharge: 08/18/23 Primary Care Physician: No Primary Care Phys Reason For Visit: OPIATE AND ALCOHOL WITHDRAWAL Diagnosis Discharge Diagnosis (1) Polysubstance abuse: Status: Acute Code(s): F19.10 - Other psychoactive substance abuse, uncomplicated Plan This 27-year-old female who came to ED to seek help. She takes 2 mg Xanax 4 times a day, drinks 1/5 of vodka every day since age of 20. 2 to 3 g of fentanyl/heroin snorting. She states he is feeling terrible with restlessness anxiety, hallucinations. Feels palpitation. Could not sleep last night. She was also seeing her mom and sister who was not there last night. Visual hallucinations 1. Acute opioid withdrawal syndrome with history of chronic opioid use and dependence and tolerance: She denies IV needle use but he snorts fentanyl and heroin. The patient is started on buprenorphine along with other adjunctive medications as needed for medical stabilization as per order set of opioid withdrawal syndrome.Patient also on trazodone, hydroxyzine, gabapentin as needed ordered. Advised quitting opioid use. hardware engineering manager consult. 08/15: Patient has withdrawal symptoms. On maximal medications. 08/16: Continue above regimen 08/17: No major change in her clinical status still having withdrawal symptoms. Discussed with the JUWAN Beasley/business case analyst of 180. Patient is going for inpatient rehab for substance abuse withdrawal syndrome including opioid, benzodiazepine and alcohol. 2. Acute alcohol withdrawal syndrome with history of chronic alcohol use dependence and tolerance: Patient is being admitted to MedSurg floor. Patient on phenobarbital based order set along with other adjunctive medications gabapentin, Bentyl, Vistaril, clonidine, Klonopin as needed for alcohol withdrawal symptom control. Patient is on thiamine and folate acid. Denies history of GI bleed, hepatitis, jaundice or ascites. CIWA monitor. hardware engineering manager consulted.. 08/15: Total CIWA score 7. 08/16:Clinically patient is still in significant withdrawal symptoms. 3. Acute benzodiazepine withdrawal syndrome with history of chronic benzodiazepine dependence and tolerance: On heavy dose of Xanax as mentioned above. Home meds also shows clonazepam unclear whether she is taking or not. She is on severe benzodiazepine withdrawal and is states that she gets seizure and had 5 times in her life. She is on Lamictal. Discussed with economic specialist Dr. Briana Cardenas and agree with phenobarbital loading dose and then taper. Phenobarb also acts as antiepileptic medication along with gabapentin as needed for for seizure/neuropathy. 08/15 dose of Xanax decreased to 0.5 milligram 3 times daily as needed for anxiety/panic attack or insomnia. Total CIWA V score for benzodiazepine withdrawal 6. 08/16: Continue home regimen. 4. Underlying psychiatric history of anxiety and substance use disorder VTE prophylaxis: Low risk. Not indicated. Discharge meds reconciliation done. Medications at Discharge Home Medications alprazolam 2 mg tablet 2 mg PO Q6H PRN PRN anxiety 08/14/23 clonidine HCl 0.1 mg tablet 0.1 mg PO DAILY PRN ANXIETY 08/14/23 ergocalciferol (vitamin D2) 1,250 mcg (50,000 unit) capsule 1,250 mcg PO MO 08/14/23 escitalopram oxalate 20 mg tablet 20 mg PO DAILY 08/14/23 gabapentin 800 mg tablet 800 mg PO 4X/DAY 08/14/23 hydroxyzine HCl 50 mg tablet 50 mg PO 4X/DAY 08/14/23 lamotrigine 25 mg tablet 25 mg PO BID 08/14/23 naproxen 500 mg tablet 500 mg PO BID PRN pain 08/14/23 olanzapine 10 mg tablet 15 mg PO DAILY 08/14/23 prazosin 2 mg capsule 2 mg PO QHS 08/14/23 quetiapine 400 mg tablet 400 mg PO QHS 08/14/23 folic acid 1 mg tablet 1 mg PO DAILY@0800 #0 tabs 08/18/23 thiamine HCl (vitamin B1) 100 mg tablet (Vitamin B-1) 100 mg PO DAILYCM #0 tabs 08/18/23 Physical Exam Narrative Seen and examined. Patient is states she feels little better than yesterday but has significant withdrawal symptoms including anxiety, restlessness could not sleep. Patient on multiple substance use/chemicals. She takes 2 mg Xanax 4 times a day, drinks 1/5 of vodka every day since age of 20. 2 to 3 g of fentanyl/heroin snorting. She states he is feeling terrible with restlessness anxiety, hallucinations. Feels palpitation. Could not sleep last night. She was also seeing her mom and sister who was not there last night. Visual hallucinations Physical exam General: Lethargic, groggy oriented x3, Cooperative HEENT: Atraumatic, PERRLA, EOMI, Normocephalic Oral: No Gingival or Mucosal Lesions/ Ulcerations Neck: Supple, No JVD, Negative Carotid Bruits Chest wall/Lungs: Air entry diminished in bilateral lung bases. No crepitation/rhonchi Cardiovascular: Regular rate, Regular Rhythm, Normal S1, Normal S2, No M/G/R Abdomen: Bowel Sounds Present, Soft, Non Tender, Non-Distended : No dysuria. No renal angle tenderness. No suprapubic tenderness. Extremities: No edema, Capillary Refill Less than 3 Seconds Skin: No rashes, No breakdown Musculoskeletal: No Tenderness to Palpation of Joints or Extremities Neurological: Cranial nerves II-XII grossly intact, DTR 2+/4. No acute focal neurological deficit. Psych/Mental Status: Restless, anxiety, hallucinations. No seizure Weight / BMI Weight Weight: 203 lb 9 oz Body Mass Index (BMI) 33.8 ABG / Lab / Microbiology Data 08/14/23 12:40 08/14/23 12:40 D/C Instructions Discharge Diet: No restrictions Weight Bearing Status: Weight bearing as tolerated Call your doctor if you observe: Fever of 101 or Higher, Coldness, Increased Pain, Numbness or Tingling, Change in Color, Inability to urinate, Inability to have a bowel movement, Using more than 1 pad per hour, Shortness of breath, Dizziness, Fainting spells, Swelling in the ankles, Chest pain, Prolonged hiccupping, Increased palpitations (irregular heartbeat) and Calf discomfort When: IN 2 WEEKS Meaningful Use Info Meaningful Use Meaningful Use Diagnoses (Choose all that apply): None applicable Ischemic Stroke Statin Dosing Therapy Reference: STATIN DOSE THERAPY REFERENCE: * Patients > 75 years receive moderate or high dose statin therapy. * Patients 75 years or YOUNGER should receive HIGH intensity statin dose unless contraindicated. You will be required to document reason for non-treatment if statin daily dose does not meet guidelines. HIGH DOSE STATIN THERAPY DAILY Atorvastatin > than or = to 40 mg Rosuvastatin > than or = to 20 mg Amlodipine + Atorvastatin > than or = to 2.5/40 mg Ezetimibe + Simvastatin 10/80 mg Simvastatin 80mg Discharge Plan Admission Admit Date/Time: 08/14/23 13:27 Primary Reason for Your Visit: Acute opioid, benzodiazepine and alcohol withdrawal syndrome Attending Provider: Jorge Rodriguez Primary Care Provider: Care Physician,No Primary Consulting Providers: Miguel Medina Discharge Orders/Prescriptions Prescriptions: New thiamine HCl (vitamin B1) [Vitamin B-1] 100 mg Tablet 100 mg PO DAILYCM Qty: 0 0RF folic acid 1 mg Tablet 1 mg PO DAILY@0800 Qty: 0 0RF Continued alprazolam 2 mg tablet 2 mg PO Q6H PRN PRN (Reason: anxiety) clonidine HCl 0.1 mg tablet 0.1 mg PO DAILY PRN (Reason: ANXIETY) ergocalciferol (vitamin D2) 1,250 mcg (50,000 unit) capsule 1,250 mcg PO MO gabapentin 800 mg tablet 800 mg PO 4X/DAY escitalopram oxalate 20 mg tablet 20 mg PO DAILY hydroxyzine HCl 50 mg tablet 50 mg PO 4X/DAY lamotrigine 25 mg tablet 25 mg PO BID naproxen 500 mg tablet 500 mg PO BID PRN (Reason: pain) olanzapine 10 mg tablet 15 mg PO DAILY prazosin 2 mg capsule 2 mg PO QHS quetiapine 400 mg tablet 400 mg PO QHS Discontinued clonazepam 0.5 mg tablet 0.5 mg PO PRN PRN (Reason: anxiety) Referrals / Follow Up: Briana Cardenas DO [Med Staff - Consulting] - Within 2 Weeks Care Physician,No Primary [Primary Care Provider] - Disposition Disposition (needs filled in before D/C Order can be placed): Inpatient Rehab Unit/Facility Charges/Coding Visit Charges Inpatient E&M: 77636 Disch Hosp >30min
--- NOTE | 2023-08-18 09:32 | PHA.DC.MR.R ---
Pharmacy [place] Med Reconciliation Pharmacy Service has performed discharge medication reconciliation for this patient. The patient's discharge medication list was reviewed for discrepancies and discrepancies were resolved. Medications at Discharge Home Medications alprazolam 2 mg tablet 2 mg PO Q6H PRN PRN anxiety 08/14/23 clonidine HCl 0.1 mg tablet 0.1 mg PO DAILY PRN ANXIETY 08/14/23 ergocalciferol (vitamin D2) 1,250 mcg (50,000 unit) capsule 1,250 mcg PO MO 08/14/23 escitalopram oxalate 20 mg tablet 20 mg PO DAILY 08/14/23 gabapentin 800 mg tablet 800 mg PO 4X/DAY 08/14/23 hydroxyzine HCl 50 mg tablet 50 mg PO 4X/DAY 08/14/23 lamotrigine 25 mg tablet 25 mg PO BID 08/14/23 naproxen 500 mg tablet 500 mg PO BID PRN pain 08/14/23 olanzapine 10 mg tablet 15 mg PO DAILY 08/14/23 prazosin 2 mg capsule 2 mg PO QHS 08/14/23 quetiapine 400 mg tablet 400 mg PO QHS 08/14/23 folic acid 1 mg tablet 1 mg PO DAILY@0800 #0 tabs 08/18/23 thiamine HCl (vitamin B1) 100 mg tablet (Vitamin B-1) 100 mg PO DAILYCM #0 tabs 08/18/23
[2023-08-18 10:08] VITALS: BP 133/82; PULSE 89; RESP 16; TEMP 37; O2SAT 97
[2023-08-18] MEDS: cloNIDine HCl 0.1 MG Tablet PO (10:14)
[2023-08-18] MEDS: Dicyclomine 10 MG Capsule 20 MG PO (10:14)
[2023-08-18] MEDS: lamoTRIgine 25 MG Tablet PO (10:15)
[2023-08-18] MEDS: Escitalopram Oxalate 20 MG Tablet PO (10:15)
[2023-08-18] MEDS: Thiamine Hydrochloride 100 MG Tablet PO (10:15)
[2023-08-18] MEDS: OLANZapine 5 MG/TAB TAB.RAPDIS 15 MG PO (10:16)
[2023-08-18] MEDS: Folic Acid 1 MG Tablet PO (10:16)
[2023-08-18] MEDS: Acetaminophen 500 MG Tablet PO (12:01)
== END 2023-08-18 12:30 | disposition home or self-care (01) | DRG 773 ==
LOC: ED 13:08 → MS3 14:21
PROVIDERS: Nurse Practitioner; Emergency Provider Emergency Medicine; Visit Provider Internal Medicine
DX: F11.23 Opioid dependence with withdrawal (principal); F10.239 Alcohol dependence with withdrawal, unspecified; F13.239 Sedative, hypnotic or anxiolytic dependence with withdrawal, unspecified; F17.210 Nicotine dependence, cigarettes, uncomplicated; Z79.899 Other long term (current) drug therapy; Y90.0 Blood alcohol level of less than 20 mg/100 ml
CPT/HCPCS: 80048; 80307; 80320; 84703; 85025; 99284; G0480